=== PATIENT | male | born 1955 | race Caucasian/White ===

== ENCOUNTER 2022-10-18 06:25 | Day surgery (SDC) | payer MEDICARE, SELFPAY ==
[2022-10-18 06:40] VITALS: BP 136/82; PULSE 76; RESP 16; TEMP 36.6
[2022-10-18 06:41] VITALS: BMI 32.8
[2022-10-18 06:42] VITALS: BP 136/82; PULSE 76; RESP 16; TEMP 36.6; O2SAT 95
[2022-10-18] MEDS: lidocaine HCL 2 % MULTIDOSE 20 ML VIAL INJECTION (07:25)
[2022-10-18] MEDS: BUPIVACAINE 0.5% 30 ML INJECTION (07:25)
--- NOTE | 2022-10-18 07:29 | SUR.OPER ---
Patient VS being monitored during procedure: 1st 725 - BP: 134/74, Pulse 73 and 02 sat 97% on Room Air. 07 - BP: 142/73, Pulse 71 and 02 sat 98% on Room Air. 0745 - BP: 131/75, Pulse 70 and 02 sat 98% on Room Air 0755 - BP: 129/77, Pulse 68 and 02 sat 97% on Room Air. Last 0800 - BP: 132/78, Pulse 73 and 02 sat 97% on Room Air Tolerated procedure well.
--- NOTE | 2022-10-18 08:03 | PM.ORPRC ---
Procedure Note Date of procedure: 10/18/22 Procedure: Preop diagnosis: Left upper extremity carpal tunnel syndrome Postop diagnosis: Left upper extremity carpal tunnel syndrome Procedure: Left upper extremity carpal tunnel release Anesthesia: Local Surgeon: Solitario Lino MD escrow assistant: JOSELUIS Espana EBL: 5 mL Complications: None Specimens: None Drains: None Indications: The patient has a history of left upper extremity carpal tunnel syndrome symptoms. Despite appropriate nonoperative management consisting of nighttime bracing and occupational therapy they continue to have symptoms. Operative intervention was recommended. The risks, benefits alternatives and expected outcomes were discussed in detail. These included but were not limited to: Infection, bleeding, injury to blood vessel or nerve, venous thromboembolism. All questions were answered to their satisfaction. The patient was placed supine on the operating room table. Local anesthesia was established with 0.5% Marcaine without epinephrine and 2% lidocaine without epinephrine. The hand was prepped and draped in usual sterile fashion. The limb was elevated the forearm pneumatic tourniquet was inflated to 250 mm of mercury. A longitudinal incision was made centered over the radial border of the ring finger at the base of the palm. Subcutaneous dissection was sharply taken through the palmar fascia and the palmaris brevis to the transverse carpal ligament. The ligament was divided in line with the incision. Proximal and distal dissection was carried with tenotomy and Metzenbaum scissors for a wide decompression of the carpal tunnel. The tourniquet was released, bleeding was controlled with direct pressure. The wound was closed with a 3-0 nylon. A bulky dry dressing was applied, sponge and needle counts were correct x 2. The patient tolerated the procedure well, there were no apparent complications. They were sent to same day surgery in satisfactory condition. Plan: Use of the hand as tolerates. Discontinue the intraoperative dressing on postoperative day 3 and may get the wound wet as tolerates. Follow up in the office in 2 weeks for a wound check and suture removal.
[2022-10-18 08:10] VITALS: BP 128/83; PULSE 70; RESP 16; TEMP 36.3; O2SAT 95
== END 2022-10-18 08:25 | disposition home or self-care (01) ==
PROVIDERS: PCP Family Medicine; Visit Provider Orthopaedic Surgery
PROC: (CPT 64721; principal; 2022-10-18 07:30)
DX: G56.02 Carpal tunnel syndrome, left upper limb (principal)
CPT/HCPCS: 64721; J3490